=== PATIENT | male | born 1935 | race Caucasian/White ===

== ENCOUNTER 2019-06-22 13:01 | Emergency (ER) | payer MEDICARE ==
[~2019-06-22] VITALS: Ht 185.4 cm; Wt 87.7 kg
--- NOTE | 2019-06-22 13:41 | NUR ---
Pt's Jeanna left her phone number where she can be reached [phone].
[2019-06-22 13:44] LABS: BASOPHILS % (AUTO) 0.1 % (0-1); EOSINOPHILS # (AUTO) 0.1 X10'3 (0-0.9); EOSINOPHILS % (AUTO) 1.1 % (0-6); HEMATOCRIT 44.1 % (42.0-52.0); HEMOGLOBIN 14.5 g/dl (14.0-17.9); LYMPHOCYTES % (AUTO) 9.2 % (21-51); MEAN CORPUSCULAR HEMOGLOBIN 31.7 PG (27.0-31.0); MEAN CORPUSCULAR HGB CONC 32.9 g/dL (33.0-36.5); MEAN CORPUSCULAR VOLUME 96.6 FL (78-98); MEAN PLATELET VOLUME 8.9 FL (7.4-10.4); MONOCYTES % (AUTO) 9.1 % (2-12); NEUTROPHILS # (AUTO) 8.5 X10'3 (1.8-7.7); NEUTROPHILS % (AUTO) 80.5 % (42-75); PLATELET COUNT 307 X10'3 (140-440); RED BLOOD COUNT 4.57 X10'6 (4.70-6.10); RED CELL DISTRIBUTION WIDTH 14.6 % (11.5-14.5); WHITE BLOOD COUNT 10.5 X10'3 (4.5-11.0)
[2019-06-22 14:13] LABS: ALANINE AMINOTRANSFERASE 23 U/L (12-78); ALBUMIN 3.8 G/DL (3.4-5.0); ALBUMIN/GLOBULIN RATIO 0.9 (1.1-1.5); ALKALINE PHOSPHATASE 60 IU/L (46-116); ANION GAP 9 (8-16); ASPARTATE AMINO TRANSFERASE 29 U/L (10-37); BILIRUBIN,TOTAL 1.9 MG/DL (0.1-1.0); BLOOD UREA NITROGEN 21 MG/DL (7-18); BUN/CREATININE RATIO 17.4 (5.4-32.0); CALCIUM 9.6 MG/DL (8.5-10.1); CHLORIDE 104 MMOL/L (99-107); CREATININE 1.21 MG/DL (0.60-1.10); GLUCOSE 127 MG/DL (70-104); POTASSIUM 4.4 MMOL/L (3.5-5.1); SODIUM 140 MMOL/L (135-145); TOTAL CARBON DIOXIDE 26.9 MMOL/L (24-32); TOTAL PROTEIN 8.2 G/DL (6.4-8.2); eGFR 58 ML/MIN
[2019-06-22] MEDS ORDERED: metoprolol tartrate 1mg/ml inj IV ONE (14:30)
--- NOTE | 2019-06-22 14:58 | NUR ---
REPORT FROM [facility] RE: PACEMAKER INTERROGATION. PT HAS A BI-V ICD. PT OF DR CHRISTINE. PT HAS BEEN IN A-FIB SINCE MAY. PT WENT INTO A-FIB WITH RVR AT 1309 TODAY AND LASTED APROX 1:03. PRIOR TO MAY HE WAS AT 10% DEMAND, NOW PT IS AT 100% DEMAND.
[2019-06-22] MEDS ORDERED: CARV6.252 PO (15:21)
[2019-06-22 15:29] VITALS: BP 120/59
== END 2019-06-22 15:32 | disposition home or self-care (01) ==
LOC: ER 13:03
DX: I48.20 Chronic atrial fibrillation, unspecified (principal); R06.00 Dyspnea, unspecified
CPT/HCPCS: 36415; 71045; 80053; 83880; 84484; 85025; 93005; 96374; 99285; J3490

== ENCOUNTER 2019-07-17 10:42 | Inpatient (IN) | payer MEDICARE, BC ==
[~2019-07-17] VITALS: Ht 184.2 cm; Wt 78.6 kg
[~2019-07-17 10:42] MED LIST: CARV6.252 PO
[2019-07-17 11:32] LABS: BASOPHILS # (AUTO) 0.1 X10'3 (0-0.2); BASOPHILS % (AUTO) 0.5 % (0-1); EOSINOPHILS % (AUTO) 0.1 % (0-6); HEMATOCRIT 40.7 % (42.0-52.0); HEMOGLOBIN 13.4 g/dl (14.0-17.9); LYMPHOCYTES # (AUTO) 0.7 X10'3 (1.1-4.8); LYMPHOCYTES % (AUTO) 5.4 % (21-51); MEAN CORPUSCULAR HEMOGLOBIN 29.6 PG (27.0-31.0); MEAN CORPUSCULAR HGB CONC 32.9 g/dL (33.0-36.5); MEAN PLATELET VOLUME 8.4 FL (7.4-10.4); MONOCYTES # (AUTO) 0.8 X10'3 (0-0.9); MONOCYTES % (AUTO) 6.4 % (2-12); NEUTROPHILS # (AUTO) 11.4 X10'3 (1.8-7.7); NEUTROPHILS % (AUTO) 87.6 % (42-75); PLATELET COUNT 272 X10'3 (140-440); RED BLOOD COUNT 4.53 X10'6 (4.70-6.10); RED CELL DISTRIBUTION WIDTH 15.5 % (11.5-14.5)
[2019-07-17 11:45] LABS: ALANINE AMINOTRANSFERASE 17 U/L (12-78); ALBUMIN 3.2 G/DL (3.4-5.0); ALBUMIN/GLOBULIN RATIO 0.7 (1.1-1.5); ALKALINE PHOSPHATASE 80 IU/L (46-116); ANION GAP 6 (8-16); ASPARTATE AMINO TRANSFERASE 15 U/L (10-37); BILIRUBIN,TOTAL 1.1 MG/DL (0.1-1.0); BLOOD UREA NITROGEN 17 MG/DL (7-18); BUN/CREATININE RATIO 12.8 (5.4-32.0); CALCIUM 9.3 MG/DL (8.5-10.1); CHLORIDE 102 MMOL/L (99-107); CREATININE 1.33 MG/DL (0.60-1.10); GLUCOSE 133 MG/DL (70-104); SODIUM 137 MMOL/L (135-145); TOTAL CARBON DIOXIDE 29.5 MMOL/L (24-32); eGFR 52 ML/MIN
[2019-07-17] MEDS ORDERED: ondansetron/PF 4mg/2ml inj IV PRN (13:15)
[2019-07-17] MEDS ORDERED: acetaminophen 325mg tablet PO PRN ×2 (13:15)
[2019-07-17] MEDS ORDERED: magnesium hydroxide 30ml (MOM) UD suspension PO PRN (13:15)
[2019-07-17] MEDS ORDERED: mag hydrox/Alum hydrox/simeth 30ml oral suspension PO PRN (13:15)
[2019-07-17] MEDS ORDERED: morphine 2 MG/ML inj. syringe IV PRN ×2 (13:15)
[2019-07-17] MEDS ORDERED: HYDROcodone/acetaminophen 5mg/325mg tablet PO PRN (13:15)
[2019-07-17] MEDS ORDERED: FINA5TAB11 PO (13:48)
[2019-07-17] MEDS ORDERED: CARV12.545 PO (13:48)
[2019-07-17] MEDS ORDERED: POTA-82 PO (13:48)
[2019-07-17] MEDS ORDERED: SPIR25TA5 PO (13:48)
[2019-07-17] MEDS ORDERED: ATOR20TA66 PO (13:48)
[2019-07-17] MEDS ORDERED: APIX5TAB3 PO (13:48)
[2019-07-17] MEDS ORDERED: FURO40TA4 PO (13:48)
--- NOTE | 2019-07-17 13:54 | NUR ---
breaking primary RN, lab at bedside, as well as , pt is pleasantly confused
--- NOTE | 2019-07-17 15:15 | NUR ---
Received report from HENRRY Bryan. Will await patient arrival.
[2019-07-17 15:29] LABS: CLARITY,URINE SLIGHTLY CLOUDY (Clear); COLOR,URINE YELLOW (Yellow); GLUCOSE, URINE NEGATIVE (Neg); KETONES,URINE NEGATIVE (Neg); LEUKOCYTE ESTERASE ,URINE NEGATIVE (Neg); NITRITES, URINE NEGATIVE (Neg); OCCULT BLOOD,URINE LARGE (Neg); PROTEIN,URINE NEGATIVE (Neg); UROBILINOGEN,URINE 0.2 E.U/dL (0.2-1.0)
[2019-07-17 15:30] VITALS: BP 112/96
[2019-07-17 15:30] LABS: UA COLLECTION TYPE VOIDED
--- NOTE | 2019-07-17 15:30 | NUR ---
Patient arrived to PCU. Patient is alert and oriented x4 but has some confusion. I received in report that the patient has a history of dementia. Assessment completed and assumed care of patient.
[2019-07-17 15:37] LABS: MUCUS STRANDS MANY /LPF (Neg); SQUAMOUS EPITHELIAL CELL,UR MANY /LPF (FEW); TRANSITIONAL EPI CELLS,URINE FEW /HPF
[2019-07-17 15:38] LABS: RBC,URINE 50-100 /HPF (0-2); WBC,URINE 0-4 /HPF (0-4)
[2019-07-17 15:40] LABS: BACTERIA,URINE NONE SEEN /HPF (Neg)
[2019-07-17] MEDS: normal saline 1000ml 1,000 ML IV SCH ×2 (15:45→23:12)
[2019-07-17 18:00] VITALS: BP 108/46
--- NOTE | 2019-07-17 18:26 | NUR ---
Problems reprioritized. Patient report given, questions answered & plan of care reviewed with HENRRY Conteh.
--- NOTE | 2019-07-17 18:45 | NUR ---
Patient in room PCU 3026. I have received report from Nella, and had the opportunity to ask questions and assume patient care.
--- NOTE | 2019-07-17 19:49 | NUR ---
The patient's daughter Catherine with phone number [phone] called and wanted an updated regarding her father. All questions were answered. She will call back again tomorrow to get an update regarding her father.
[2019-07-17 20:00] VITALS: BP 108/46
--- NOTE | 2019-07-17 20:00 | NUR ---
patient noncompliant, confused, unable to complete the orthostatic vitals for 1999. Will try later if patient becomes more alert.
[2019-07-17] MEDS: apixaban 5mg tablet PO SCH (20:32)
[2019-07-17] MEDS ORDERED: atorvastatin 20mg tablet PO SCH (21:00)
--- NOTE | 2019-07-17 23:51 | NUR ---
PAGER ID: [phone] MESSAGE: ANAMARIAAbhijeet TeddyChavo wei 83 M Rm [id number] admitted for syncope with recent frequent falls, hx of dementia, PPM. The first 3 troponins were 0.04, but the 12 Hr troponin came to be 0.08. Pt. is asymptomatic. [facility] PCU [id number].
[2019-07-18 01:53] VITALS: BP 105/49
[2019-07-18] MEDS: normal saline 1000ml 1,000 ML IV SCH (04:20)
[2019-07-18 05:05] LABS: BASOPHILS % (AUTO) 0.3 % (0-1); EOSINOPHILS # (AUTO) 0.1 X10'3 (0-0.9); EOSINOPHILS % (AUTO) 0.8 % (0-6); HEMATOCRIT 34.2 % (42.0-52.0); HEMOGLOBIN 11.5 g/dl (14.0-17.9); LYMPHOCYTES # (AUTO) 1.2 X10'3 (1.1-4.8); LYMPHOCYTES % (AUTO) 13.6 % (21-51); MEAN CORPUSCULAR HEMOGLOBIN 30.5 PG (27.0-31.0); MEAN CORPUSCULAR HGB CONC 33.7 g/dL (33.0-36.5); MEAN CORPUSCULAR VOLUME 90.5 FL (78-98); MEAN PLATELET VOLUME 8.5 FL (7.4-10.4); MONOCYTES # (AUTO) 0.7 X10'3 (0-0.9); MONOCYTES % (AUTO) 8.2 % (2-12); NEUTROPHILS # (AUTO) 6.5 X10'3 (1.8-7.7); NEUTROPHILS % (AUTO) 77.1 % (42-75); PLATELET COUNT 245 X10'3 (140-440); RED BLOOD COUNT 3.78 X10'6 (4.70-6.10); RED CELL DISTRIBUTION WIDTH 15.3 % (11.5-14.5); WHITE BLOOD COUNT 8.5 X10'3 (4.5-11.0)
[2019-07-18 05:13] LABS: ALBUMIN 2.6 G/DL (3.4-5.0); ANION GAP 6 (8-16); BLOOD UREA NITROGEN 18 MG/DL (7-18); CALCIUM 8.5 MG/DL (8.5-10.1); CHLORIDE 106 MMOL/L (99-107); GLUCOSE 101 MG/DL (70-104); POTASSIUM 3.8 MMOL/L (3.5-5.1); SODIUM 141 MMOL/L (135-145); TOTAL CARBON DIOXIDE 28.7 MMOL/L (24-32); eGFR 58 ML/MIN
[2019-07-18 06:00] VITALS: BP 106/43
--- NOTE | 2019-07-18 06:25 | NUR ---
Problems reprioritized. Patient report given Claudia, questions answered & plan of care reviewed with .
--- NOTE | 2019-07-18 06:37 | NUR ---
Patient in room PCU 3026. I have received report from Yady SALES and had the opportunity to ask questions and assume patient care.
[2019-07-18 08:00] VITALS: BP_SYST 112; BP_SYST 117; BP_SYST 122; BP_DIAS 50; BP_DIAS 56; BP_DIAS 58
[2019-07-18] MEDS ORDERED: spironolactone 25 MG tablet PO SCH (08:00)
[2019-07-18] MEDS ORDERED: potassium Cl 20 mEq SR tablet PO SCH (08:00)
[2019-07-18] MEDS ORDERED: finasteride 5mg tablet PO SCH (08:00)
[2019-07-18] MEDS: apixaban 5mg tablet PO SCH (08:39)
[2019-07-18 11:00] VITALS: BP 114/57
--- NOTE | 2019-07-18 11:50 | NUR ---
paged Dr. Lynn. Chavo Espinal. [id number]. FYI patient walked 600ft with PT. VS stable. Kiran [phone]
--- NOTE | 2019-07-18 14:21 | NUR ---
Patient safe to discharge per MD orders, discharge instructions reviewed and questions answered with , PIV and tele DC, no new prescriptions, patient will schedule follow up with PCP and Dr. Kenny within 1-2 weeks, patient wheeled to lobby, picked up in personal vehicle by .
== END 2019-07-18 14:05 | disposition home health service (06) | DRG 312 ==
LOC: ER 10:42 → ED HOLD 13:12 → PCU 3S 15:31
PROVIDERS: ADMIT Internal Medicine; ATTEND Internal Medicine
DX: I95.1 Orthostatic hypotension (principal); N17.9 Acute kidney failure, unspecified; I50.22 Chronic systolic (congestive) heart failure; E78.00 Pure hypercholesterolemia, unspecified; Z95.810 Presence of automatic (implantable) cardiac defibrillator; S00.03XA Contusion of scalp, initial encounter; X58.XXXA Exposure to other specified factors, initial encounter; Y93.89 Activity, other specified; Y92.89 Other specified places as the place of occurrence of the external cause; Y99.8 Other external cause status; E78.5 Hyperlipidemia, unspecified; N40.0 Benign prostatic hyperplasia without lower urinary tract symptoms; I11.0 Hypertensive heart disease with heart failure; E86.0 Dehydration; T50.905A Adverse effect of unspecified drugs, medicaments and biological substances, initial encounter; Z79.899 Other long term (current) drug therapy; I48.0 Paroxysmal atrial fibrillation; I95.9 Hypotension, unspecified; D72.829 Elevated white blood cell count, unspecified
CPT/HCPCS: 36415; 70450; 71045; 80048; 80053; 81001; 83880; 84484; 85025; 87081; 93005; 93306; 97110; 97161; 97530; 99285; G0378; J7030

== ENCOUNTER 2020-04-29 14:22 | Emergency (ER) | payer MEDICARE, BC ==
[~2020-04-29] VITALS: Ht 185.4 cm; Wt 96.8 kg
[~2020-04-29 14:22] MED LIST changes: +APIX5TAB3 PO; +ATOR20TA66 PO; -CARV6.252 PO; +FINA5TAB11 PO; +FURO40TA4 PO; +POTA-82 PO; +SPIR25TA5 PO
[2020-04-29] MEDS ORDERED: normal saline 1000ML IV soln IVB ONE (14:40)
[2020-04-29 14:54] LABS: BASOPHILS # (AUTO) 0.1 X10'3 (0-0.2); BASOPHILS % (AUTO) 0.9 % (0-1); EOSINOPHILS # (AUTO) 0.1 X10'3 (0-0.9); EOSINOPHILS % (AUTO) 0.9 % (0-6); HEMOGLOBIN 15.5 g/dl (14.0-17.9); LYMPHOCYTES # (AUTO) 0.9 X10'3 (1.1-4.8); LYMPHOCYTES % (AUTO) 9.2 % (21-51); MEAN CORPUSCULAR HEMOGLOBIN 32.5 PG (27.0-31.0); MEAN CORPUSCULAR HGB CONC 33.6 g/dL (33.0-36.5); MEAN CORPUSCULAR VOLUME 96.8 FL (78-98); MEAN PLATELET VOLUME 8.6 FL (7.4-10.4); MONOCYTES # (AUTO) 0.7 X10'3 (0-0.9); MONOCYTES % (AUTO) 7.2 % (2-12); NEUTROPHILS # (AUTO) 7.9 X10'3 (1.8-7.7); NEUTROPHILS % (AUTO) 81.8 % (42-75); PLATELET COUNT 162 X10'3 (140-440); RED BLOOD COUNT 4.75 X10'6 (4.70-6.10); RED CELL DISTRIBUTION WIDTH 13.8 % (11.5-14.5); WHITE BLOOD COUNT 9.7 X10'3 (4.5-11.0)
--- NOTE | 2020-04-29 15:00 | NUR ---
PT EVALUATED BY TELE NEURO. AT BEDSIDE.
[2020-04-29 15:08] LABS: ALANINE AMINOTRANSFERASE 29 U/L (12-78); ALBUMIN/GLOBULIN RATIO 1.1 (1.1-1.5); ALKALINE PHOSPHATASE 57 IU/L (46-116); ANION GAP 7 (8-16); ASPARTATE AMINO TRANSFERASE 32 U/L (10-37); BILIRUBIN,TOTAL 1.5 MG/DL (0.1-1.0); BLOOD UREA NITROGEN 17 MG/DL (7-18); BUN/CREATININE RATIO 12.8 (5.4-32.0); CALCIUM 9.2 MG/DL (8.5-10.1); CHLORIDE 102 MMOL/L (99-107); CREATININE 1.33 MG/DL (0.60-1.10); GLUCOSE 112 MG/DL (70-104); POTASSIUM 4.5 MMOL/L (3.5-5.1); SODIUM 139 MMOL/L (135-145); TOTAL CARBON DIOXIDE 29.8 MMOL/L (24-32); TOTAL PROTEIN 7.5 G/DL (6.4-8.2); eGFR 51 ML/MIN
[2020-04-29 15:13] LABS: ETHANOL < 0.010 GM/DL (0.0-0.010); TROPONIN I < 0.04 NG/ML (0.0-0.05)
[2020-04-29 16:25] VITALS: BP 101/72
--- NOTE | 2020-04-29 16:41 | NUR ---
VSS, PT AMBULATE 50 FEET WITH WALKER BRISKLY, NO DIZZINESS, OR CONFUSION. PT BACK IN HIS ROOM ANXIOUS TO GET HOME AND HAVE A BIG BOWL OF CHICKEN NOODLE SOUP.
== END 2020-04-29 17:14 | disposition home or self-care (01) ==
LOC: ER 14:23
DX: R41.0 Disorientation, unspecified (principal); R53.1 Weakness; R42 Dizziness and giddiness; I48.91 Unspecified atrial fibrillation; E78.00 Pure hypercholesterolemia, unspecified; I10 Essential (primary) hypertension; Z79.01 Long term (current) use of anticoagulants; Z95.5 Presence of coronary angioplasty implant and graft; Z79.899 Other long term (current) drug therapy
CPT/HCPCS: 36415; 70450; 71045; 80053; 80320; 82140; 84484; 85025; 96360; 99285; J7030